=== PATIENT | male | born 1995 | race Caucasian/White ===

== ENCOUNTER 2017-10-12 15:04 | Emergency (ER) | payer OTHER ==
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
[2017-10-12 16:38] VITALS: BP 123/71
== END 2017-10-12 16:37 | disposition home or self-care (01) ==
LOC: ER 15:04
DX: S80.811A Abrasion, right lower leg, initial encounter (principal); V43.52XA Car driver injured in collision with other type car in traffic accident, initial encounter; Z86.14 Personal history of Methicillin resistant Staphylococcus aureus infection
CPT/HCPCS: 99283